=== PATIENT | male | born 1965 | race Two or more races ===

== ENCOUNTER 2018-01-21 09:59 | Day surgery (SDC) | payer BC ==
--- NOTE | 2018-01-21 09:04 | PCM.PREANE ---
Preanesthetic Assessment - Procedure Proposed Procedure: ORIF right clavicle fracture (01/13/18) - Anesthesia/Transfusion/Family Hx Anesthesia History: Prior Anesthesia Without Reaction Transfusion History: No Prior Transfusion(s) Intubation History: Unknown - Review of Systems General: No Symptoms Pulmonary: Other (less than 10%pneumothorax on evaluation of fx last week) Cardiovascular: No Symptoms Gastrointestinal: No Symptoms Neurological: Other (pain due to clavicle fx) Other: Reports: None - Physical Assessment NPO Status Date: 01/20/18 NPO Status Time: 22:00 Height: 5 ft 7 in Weight: 150 lb ASA Class: 2 Mental Status: Alert & Oriented x3 - Allergies Allergies/Adverse Reactions: Allergies Allergy/AdvReac Type Severity Reaction Status Date / Time No Known Allergies Allergy Verified 01/12/18 13:35 MDT - Blood Blood Available: No Product(s) Available: None - Acknowledgements Anesthesia Type Planned: General Anesthesia Pt an Appropriate Candidate for the Planned Anesthesia: Yes Alternatives and Risks of Anesthesia Discussed w Pt/Guardian: Yes Pt/Guardian Understands and Agrees with Anesthesia Plan: Yes PreAnesthesia Questionnaire - Past Health History Medical/Surgical History: Denies Medical/Surgical History Respiratory History: Reports: Pneumothorax Gastrointestinal History: Reports: Other (See Below) Other Gastrointestinal History: some heartburn- takes OTC Tums - Past Surgical History Musculoskeletal Surgical History: Reports: Other (See Below) Other Musculoskeletal Surgeries/Procedures:: Repair of Laceration Right Hand ( thumb and index finger) - SUBSTANCE USE Smoking Status *Q: Never Smoker Tobacco Use Within Last Twelve Months:  Recreational Drug Use History: No - HOME MEDS Home Medications: Home Meds Acetaminophen/HYDROcodone [[place] 325-5 MG] 1 - 2 tab PO Q6HR PRN #25 tablet 08/31 [Rx] - CURRENT (IN HOUSE) MEDS Current Meds: Current Medications Hydrocodone Bitart/Acetaminophen ([place] 325-10 Mg) 1 - 2 tab PO Q4H PRN PRN Reason: Pain Cefazolin Sodium/Dextrose 1 gm (/ Premix) 50 mls @ 100 mls/hr IV ONCALL KAYLA Lactated Ringer's (Ringers, Lactated) 1,000 mls @ 100 mls/hr IV ASDIRECTED [facility]
[~2018-01-21 09:59] MED LIST: Acetaminophen/HYDROcodone 325-10 MG Tab PO PRN; ceFAZolin 1 GM in Premix Bag 1 BAG IV SCH
[2018-01-21] MEDS: Lactated Ringers 1,000 ML IV SCH ×2 (10:30→16:33)
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
[2018-01-21] MEDS ORDERED: Midazolam 1 MG/ML 2 ML SDV ONE (10:44)
[2018-01-21] MEDS ORDERED: Lidocaine 2% 100 MG/5 ML Syringe ONE (10:44)
[2018-01-21] MEDS ORDERED: Propofol 200 MG/20 ML SDV ONE (10:44)
[2018-01-21] MEDS ORDERED: fentaNYL 250 MCG/5 ML SDV ONE (10:44)
[2018-01-21] MEDS ORDERED: Bupivacaine 25%/EPINEPHrine/PF 30 ML ONE (11:31)
--- NOTE | 2018-01-21 11:42 | PCM.OPNOTE ---
- General Post-Op/Procedure Note Date of Surgery/Procedure: 01/21/18 Operative Procedure(s): ORIF R clavicle Post-Op Diagnosis: R midshaft clavicle fracture Anesthesia Technique: General LMA Primary Surgeon: Ericka Mac Laborer General: Geneva Mathis in mLs: 10 Condition: Good Free Text/Narrative:: #[id number]
[2018-01-21] MEDS ORDERED: ePHEDrine 50 MG/ML SDV ONE (12:09)
[2018-01-21] MEDS ORDERED: Glycopyrrolate 0.2 MG/ML SDV ONE (12:43)
[2018-01-21] MEDS ORDERED: Ondansetron 4 MG/2 ML SDV IVPUSH ONE (14:21)
[2018-01-21] MEDS ORDERED: fentaNYL 100 MCG/2 ML SDV IVPUSH PRN (14:23)
[2018-01-21] MEDS ORDERED: fentaNYL 100 MCG/2 ML SDV ONE (14:27)
[2018-01-21] MEDS ORDERED: Promethazine 25 MG/ML SDV IM ONE (14:49)
--- NOTE | 2018-01-21 14:53 | PCM.POSTAN ---
POST ANESTHESIA ASSESSMENT - MENTAL STATUS Mental Status: Alert, Oriented - RESPIRATORY Respiratory Status: Respiratory Rate WNL, Airway Patent, O2 Saturation Stable - CARDIOVASCULAR CV Status: Pulse Rate WNL, Blood Pressure Stable - GASTROINTESTINAL GI Status: [place] Free Text/Narrative:: feels bad, looks ill, and nausea seems to be the symptom. He did not respond to the Zofran given. See orders for phenergan IM. Patient understands that he should rest/sleep and the nausea should sudarshan. - PAIN Pain Score: 8 - POST OP HYDRATION Hydration Status: Adequate & Stable - OBSERVATIONS Free Text/Narrative:: Will observe in phase II.
--- NOTE | 2018-01-21 15:54 | PCM.SN ---
- Free Text/Narrative Note: Patient seen and examined. Continues to have pain at incision site along with nausea. Denies paralysis, paresthesias. No SOB noted. Dressing dry/intact. AIN/PIN/uln motor intact. Rad/uln/med sensation intact. Rad pulse 2+. Will plan to admit to hospital for pain control and nausea. Patient in agreement with plan.
[2018-01-21] MEDS ORDERED: diphenhydrAMINE 25 MG Cap PO PRN (15:57)
[2018-01-21] MEDS ORDERED: Acetaminophen/HYDROcodone 325-10 MG Tab PO PRN (15:57)
[2018-01-21] MEDS ORDERED: HYDROmorphone 2 MG/ML SDV IVPUSH PRN (15:57)
[2018-01-21] MEDS ORDERED: Ondansetron 4 MG/2 ML SDV IV PRN (15:57)
[2018-01-21] MEDS ORDERED: Sodium Chloride 0.9% 10 ML Syringe FLUSH PRN (15:59)
[2018-01-21] MEDS ORDERED: Sodium Chloride 0.9% 2.5 ML Syringe FLUSH PRN (15:59)
--- NOTE | 2018-01-21 16:15 | CR ---
EXAMINATION: Right clavicle HISTORY: ORIF COMPARISON: 01/20/2013 TECHNIQUE: 2 views FINDINGS/IMPRESSION: Operative control films demonstrate screw and plate fixation of a right clavicul ar fracture. Position and alignment appear near anatomic.
[2018-01-21] MEDS: Ketorolac 30 MG/ML SDV IVPUSH SCH ×2 (16:35→21:25)
[2018-01-21] MEDS: Docusate Sodium 100 MG Cap PO SCH (21:25)
[2018-01-22] MEDS: Lactated Ringers 1,000 ML IV SCH (02:36)
[2018-01-22] MEDS: Ketorolac 30 MG/ML SDV IVPUSH SCH (04:07)
--- NOTE | 2018-01-22 07:22 | PCM48HPAN ---
Post Anesthesia Note - EVALUATION WITHIN 48HRS OF ANESTHETIC Vital Signs in Normal Range: Yes Patient Participated in Evaluation: Yes Respiratory Function Stable: Yes Airway Patent: Yes Cardiovascular Function Stable: Yes Hydration Status Stable: Yes Pain Control Satisfactory: Yes Nausea and Vomiting Control Satisfactory: Yes Mental Status Recovered: Yes Resp Rate: 16 - COMMENTS/OBSERVATIONS Free Text/Narrative:: States he is ready to go home..."kick me out"
[2018-01-22] MEDS: Docusate Sodium 100 MG Cap PO SCH (08:27)
--- NOTE | 2018-01-22 08:50 | PCM.SURGPN ---
- General Info Date of Service: 01/22/18 POD#: 1 Functional Status: Reports: Pain Controlled - Review of Systems General: Reports: No Symptoms Pulmonary: Reports: No Symptoms Cardiovascular: Reports: No Symptoms Psychiatric: Reports: No Symptoms - Patient Data Vitals - Most Recent: Last Vital Signs Temp 97.5 F 01/22/18 07:44 Pulse 66 01/22/18 07:44 Resp 17 01/22/18 07:44 BP 118/77 01/22/18 07:44 Pulse Ox 93 L 01/22/18 07:44 Weight - Most Recent: 68.039 kg I&O - Last 24 Hours: Intake & Output 01/21/18 01/22/18 01/22/18 22:59 06:59 14:59 Intake Total 750 620 Output Total 200 Balance 750 420 Med Orders - Current: Current Medications Hydrocodone Bitart/Acetaminophen ([place] 325-10 Mg) 1 - 2 tab PO Q4H PRN PRN Reason: Pain Last Admin: 01/22/18 02:43 Dose: 1 tab Hydrocodone Bitart/Acetaminophen ([place] 325-10 Mg) 1 - 2 tab PO Q4H PRN PRN Reason: Pain Diphenhydramine HCl (Benadryl) 25 - 50 mg PO Q6H PRN PRN Reason: Itching Docusate Sodium (Colace) 100 mg PO BID [facility] Last Admin: 01/22/18 08:27 Dose: 100 mg Fentanyl (Sublimaze) 50 - 100 mcg IVPUSH Q5M PRN PRN Reason: Pain (severe 7-10) Last Admin: 01/21/18 14:28 Dose: 50 mcg Hydromorphone HCl (Dilaudid) 0.5 - 1 mg IVPUSH Q3H PRN PRN Reason: Pain Cefazolin Sodium/Dextrose 1 gm (/ Premix) 50 mls @ 100 mls/hr IV ONCALL KAYLA Lactated Ringer's (Ringers, Lactated) 1,000 mls @ 100 mls/hr IV ASDIRECTED [facility] Last Admin: 01/22/18 02:36 Dose: 100 mls/hr Ketorolac Tromethamine (Toradol) 30 mg IVPUSH Q6H [facility] Last Admin: 01/22/18 04:07 Dose: 30 mg Ondansetron HCl (Zofran) 4 mg IV Q6HR PRN PRN Reason: NAUSEA/VOMITING Sodium Chloride (Saline Flush) 10 ml FLUSH ASDIRECTED PRN PRN Reason: Keep Vein Open Sodium Chloride (Saline Flush) 2.5 ml FLUSH ASDIRECTED PRN PRN Reason: Keep Vein Open Discontinued Medications Ephedrine Sulfate (Ephedrine Sulfate) Confirm Administered Dose 50 mg .ROUTE .STK-MED ONE Stop: 01/21/18 12:10 Fentanyl (Sublimaze) Confirm Administered Dose 250 mcg .ROUTE .STK-MED ONE Stop: 01/21/18 10:45 Fentanyl (Sublimaze) Confirm Administered Dose 100 mcg .ROUTE .STK-MED ONE Stop: 01/21/18 14:28 Last Admin: 01/21/18 14:42 Dose: 50 mcg Glycopyrrolate (Robinul) Confirm Administered Dose 0.2 mg .ROUTE .STK-MED ONE Stop: 01/21/18 12:44 Cefazolin Sodium/Dextrose (Ancef) Confirm Administered Dose 50 mls @ as directed .ROUTE .STK-MED ONE Stop: 01/21/18 10:45 Bupivacaine HCl/Epinephrine Bitart (Sensorc Mpf 0.25%-Epi 1:[id number]) Confirm Administered Dose 30 mls @ as directed .ROUTE .STK-MED ONE Stop: 01/21/18 11:32 Lidocaine HCl (Xylocaine 2%) Confirm Administered Dose 100 mg .ROUTE .STK-MED ONE Stop: 01/21/18 10:45 Midazolam HCl (Versed 1 Mg/Ml) Confirm Administered Dose 2 mg .ROUTE .STK-MED ONE Stop: 01/21/18 10:45 Ondansetron HCl (Zofran) 4 mg IVPUSH ONETIME ONE Stop: 01/21/18 14:22 Last Admin: 01/21/18 14:20 Dose: 4 mg Promethazine HCl (Phenergan) 25 mg IM ONETIME ONE Stop: 01/21/18 14:50 Last Admin: 01/21/18 14:57 Dose: 25 mg Propofol (Diprivan 20 Ml) Confirm Administered Dose 200 mg .ROUTE .STK-MED ONE Stop: 01/21/18 10:45 - Exam Wound/Incisions: Dressing Dry and Intact Quality Assessment: No: Supplemental Oxygen General: Alert, Oriented Lungs: Normal Respiratory Effort Cardiovascular: Regular Rate Physical Findings Comment:: Exam of the right upper extremity shows a dressing to be in place. There is no drainage on the dressing. Range of motion of the shoulder was not assessed. He remains in a sling. AIN/PIN/ulnar motor intact. Radial/ulnar/median sensation intact. Radial pulse 2+. - Problem List & Annotations (1) Fracture, clavicle closed, shaft SNOMED Code(s): 64917012 Code(s): S42.023A - DISP FX OF SHAFT OF UNSP CLAVICLE, INIT FOR CLOS FX Status: Acute Current Visit: No Qualifiers: Encounter type: subsequent encounter Fracture alignment: displaced Laterality: right Fracture healing: with routine healing Qualified Code(s): S42.021D - Displaced fracture of shaft of right clavicle, subsequent encounter for fracture with routine healing - Problem List Review Problem List Initiated/Reviewed/Updated: Yes - My Orders Last 24 Hours: Active Orders 24 hr Category Date Time Status Patient Status [ADT] Routine ADT 01/21/18 15:54 Active Activity as Tolerated [RC] .Routine Care 01/21/18 15:56 Active May Shower [RC] ASDIRECTED Care 01/21/18 15:56 Active Neurovascular Check [RC] Q4HR Care 01/21/18 15:56 Active Notify Provider Vital Signs [RC] ASDIRECTED Care 01/21/18 15:56 Active RT Incentive Spirometry [RC] ASDIRECTED Care 01/21/18 15:56 Active Ready for Discharge [RC] PER UNIT ROUTINE Care 01/21/18 13:49 Active Vital Signs [RC] Q4H Care 01/21/18 15:56 Active Regular Diet [DIET] Diet 01/21/18 Dinner Active Acetaminophen/HYDROcodone [[place] 325-10 MG] Med 01/21/18 08:00 Active 1 - 2 tab PO Q4H PRN Acetaminophen/HYDROcodone [[place] 325-10 MG] Med 01/21/18 15:57 Active 1 - 2 tab PO Q4H PRN Docusate Sodium [Colace] Med 01/21/18 21:00 Active 100 mg PO BID HYDROmorphone [Dilaudid] Med 01/21/18 15:57 Active 0.5 - 1 mg IVPUSH Q3H PRN Ketorolac [Toradol] Med 01/21/18 16:00 Active 30 mg IVPUSH Q6H Ondansetron [Zofran] Med 01/21/18 15:57 Active 4 mg IV Q6HR PRN Sodium Chloride 0.9% [Saline Flush] Med 01/21/18 15:59 Active 10 ml FLUSH ASDIRECTED PRN Sodium Chloride 0.9% [Saline Flush] Med 01/21/18 15:59 Active 2.5 ml FLUSH ASDIRECTED PRN ceFAZolin [Ancef] 1 gm Med 01/21/18 08:00 Active Premix Bag 1 bag IV ONCALL diphenhydrAMINE [Benadryl] Med 01/21/18 15:57 Active 25 - 50 mg PO Q6H PRN fentaNYL [Sublimaze] Med 01/21/18 14:23 Active 50 - 100 mcg IVPUSH Q5M PRN Obtain Home Medication List [OM.PC] Routine Oth 01/21/18 15:56 Ordered Saline Lock Insert [OM.PC] Routine Oth 01/21/18 15:59 Ordered Sequential Compression Device [OM.PC] Routine Oth 01/21/18 08:00 Ordered Sequential Compression Device [OM.PC] Routine Oth 01/21/18 15:56 Ordered Medication Orders Hydrocodone Bitart/Acetaminophen ([place] 325-10 Mg) 1 - 2 tab PO Q4H PRN PRN Reason: Pain Last Admin: 01/22/18 02:43 Dose: 1 tab Hydrocodone Bitart/Acetaminophen ([place] 325-10 Mg) 1 - 2 tab PO Q4H PRN PRN Reason: Pain Diphenhydramine HCl (Benadryl) 25 - 50 mg PO Q6H PRN PRN Reason: Itching Docusate Sodium (Colace) 100 mg PO BID [facility] Last Admin: 01/22/18 08:27 Dose: 100 mg Admin: 01/21/18 21:25 Dose: 100 mg Fentanyl (Sublimaze) 50 - 100 mcg IVPUSH Q5M PRN PRN Reason: Pain (severe 7-10) Last Admin: 01/21/18 14:28 Dose: 50 mcg Hydromorphone HCl (Dilaudid) 0.5 - 1 mg IVPUSH Q3H PRN PRN Reason: Pain Cefazolin Sodium/Dextrose 1 gm (/ Premix) 50 mls @ 100 mls/hr IV ONCALL KAYLA Lactated Ringer's (Ringers, Lactated) 1,000 mls @ 100 mls/hr IV ASDIRECTED KAYLA Last Admin: 01/22/18 02:36 Dose: 100 mls/hr Infusion: 01/22/18 02:33 Dose: 100 mls/hr Admin: 01/21/18 16:33 Dose: 100 mls/hr Infusion: 01/21/18 16:33 Dose: 100 mls/hr Admin: 01/21/18 10:30 Dose: 100 mls/hr Ketorolac Tromethamine (Toradol) 30 mg IVPUSH Q6H [facility] Last Admin: 01/22/18 04:07 Dose: 30 mg Admin: 01/21/18 21:25 Dose: 30 mg Admin: 01/21/18 16:35 Dose: 30 mg Ondansetron HCl (Zofran) 4 mg IV Q6HR PRN PRN Reason: NAUSEA/VOMITING Sodium Chloride (Saline Flush) 10 ml FLUSH ASDIRECTED PRN PRN Reason: Keep Vein Open Sodium Chloride (Saline Flush) 2.5 ml FLUSH ASDIRECTED PRN PRN Reason: Keep Vein Open - Plan Plan (Free Text/Narrative):: At this time the patient is doing well. He did have a small right apical pneumothorax preoperatively. Recent chest x-ray did not show any increase in size. Patient is not currently having any shortness of breath and his oxygen saturation is well-maintained. His pain has been well-controlled. He may continue the sling on an as-needed basis basis. He is to remain nonweightbearing on the right upper extremity. He may do shoulder range of motion up to 90 of forward flexion. He is not to do any overhead activities. He does have a follow-up appointment in approximately 10-14 days for reevaluation. He is advised to contact us if he has questions or concerns before his next appointment. He will be discharged home today.
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
== END 2018-01-22 09:45 | disposition home or self-care (01) ==
LOC: MW.SDS 09:59 → MW.MS 15:59 → MW.SDS 01-22 09:45
PROVIDERS: ATTEND Orthopaedic Surgery
DX: S42.021A Displaced fracture of shaft of right clavicle, initial encounter for closed fracture (principal); J93.9 Pneumothorax, unspecified; V86.99XA Unspecified occupant of other special all-terrain or other off-road motor vehicle injured in nontraffic accident, initial encounter
CPT/HCPCS: 23515; 76001; A9270; J0690; J1885; J2250; J2405; J2550; J3010; J7120; C1713; J2704